=== PATIENT | female | born 1955 | race Asian ===

== ENCOUNTER 2017-11-19 16:07 | Emergency (ER) | payer OTHER ==
[~2017-11-19] VITALS: Ht 147.3 cm; Wt 98.4 kg
[2017-11-19 16:10] VITALS: BP 182/98; TEMP 98.1
== END 2017-11-19 16:33 | disposition home or self-care (01) ==
LOC: ED 16:07
DX: M79.602 Pain in left arm (principal); M79.604 Pain in right leg
CPT/HCPCS: 99281

== ENCOUNTER 2018-04-10 10:11 | Day surgery (SDC) | payer OTHER | END 2018-04-10 14:07 | disposition home or self-care (01) | LOC: OR 10:11 | PROC: 08RJ3JZ Replacement of Right Lens with Synthetic Substitute, Percutaneous Approach (ICD-10-PCS; principal; 2018-04-10) | DX: H25.811 Combined forms of age-related cataract, right eye (principal) | CPT/HCPCS: 66984; J0171; V2632 ==

== ENCOUNTER 2018-04-19 11:03 | Emergency (ER) | payer OTHER ==
[~2018-04-19] VITALS: Ht 147.3 cm; Wt 95.3 kg
[2018-04-19 11:55] VITALS: BP 160/68; TEMP 98.6
== END 2018-04-19 11:55 | disposition home or self-care (01) ==
LOC: ED 11:03
DX: T78.49XA Other allergy, initial encounter (principal)
CPT/HCPCS: 96372; 99282; J2930

== ENCOUNTER 2018-06-05 07:32 | Day surgery (SDC) | payer OTHER | END 2018-06-05 10:30 | disposition home or self-care (01) | LOC: OR 07:32 | PROC: 08RK3JZ Replacement of Left Lens with Synthetic Substitute, Percutaneous Approach (ICD-10-PCS; principal; 2018-06-05) | DX: H25.812 Combined forms of age-related cataract, left eye (principal) | CPT/HCPCS: 66984; V2632 ==

== ENCOUNTER 2018-07-14 12:03 | Outpatient (CLI) | payer OTHER ==
[2018-07-14 12:36] LABS: PLATELET COUNT 222 K/uL (152-353)
[2018-07-14 12:52] LABS: POTASSIUM 3.8 mmol/L (3.6-5.2)
== END 2018-07-14 19:46 | disposition home or self-care (01) ==
LOC: LABW 12:03
PROVIDERS: Dermatology
DX: Z79.899 Other long term (current) drug therapy (principal)
CPT/HCPCS: 36415; 80051; 80053; 82565; 85027

== ENCOUNTER 2018-09-27 14:29 | Emergency (ER) | payer OTHER ==
[~2018-09-27] VITALS: Ht 147.3 cm; Wt 88.5 kg
[2018-09-27 14:35] VITALS: TEMP 98.1
[2018-09-27 15:35] VITALS: BP 130/64
== END 2018-09-27 15:35 | disposition home or self-care (01) ==
LOC: ED 14:29
DX: K64.4 Residual hemorrhoidal skin tags (principal)
CPT/HCPCS: 96372; 99282; J1885

== ENCOUNTER 2019-02-21 14:09 | Outpatient (CLI) | payer OTHER | END 2019-02-21 20:33 | disposition home or self-care (01) | LOC: RAD 14:09 | DX: M79.5 Residual foreign body in soft tissue (principal) ==

== ENCOUNTER 2020-10-13 02:19 | Emergency (ER) | payer OTHER ==
[~2020-10-13] VITALS: Ht 147.3 cm; Wt 81.6 kg
[2020-10-13 03:39] LABS: PLATELET COUNT 251 K/uL (152-353)
[2020-10-13 03:42] LABS: POTASSIUM 3.5 mmol/L (3.6-5.2)
[2020-10-13 04:30] VITALS: BP 173/70; TEMP 98.2
== END 2020-10-13 04:30 | disposition home or self-care (01) ==
LOC: ED 02:19
PROVIDERS: Hospitalist
DX: R10.32 Left lower quadrant pain (principal); E11.65 Type 2 diabetes mellitus with hyperglycemia
CPT/HCPCS: 36415; 80053; 81000; 82150; 83690; 85027; 96360; 96361; 96374; 96375; 99284; J1170; J1815; J1885; J2405

== ENCOUNTER 2020-11-26 04:00 | Emergency (ER) | payer OTHER | END 2020-11-26 05:55 | disposition home or self-care (01) | LOC: ED 04:00 | DX: M19.022 Primary osteoarthritis, left elbow (principal); M85.88 Other specified disorders of bone density and structure, other site; M85.822 Other specified disorders of bone density and structure, left upper arm; M79.2 Neuralgia and neuritis, unspecified | CPT/HCPCS: 96372; 99283 ==

== ENCOUNTER 2021-02-07 15:43 | Emergency (ER) | payer OTHER ==
[~2021-02-07] VITALS: Ht 147.3 cm; Wt 81.6 kg
[2021-02-07 16:52] LABS: PLATELET COUNT 237 K/uL (152-353)
[2021-02-07 16:58] LABS: POTASSIUM 3.3 mmol/L (3.6-5.2)
[2021-02-07 20:15] VITALS: BP 126/66; TEMP 97.4
== END 2021-02-07 20:23 | disposition home or self-care (01) ==
LOC: ED 15:43
PROVIDERS: Family Medicine
DX: U07.1 COVID-19 (principal); J84.9 Interstitial pulmonary disease, unspecified; E87.6 Hypokalemia; Z98.890 Other specified postprocedural states
CPT/HCPCS: 36415; 80053; 82150; 83690; 85027; 87635; 96365; 96375; 99284; J0696; J2405; U0003

== ENCOUNTER 2021-09-09 10:53 | Outpatient (CLI) | payer OTHER | END 2021-09-09 21:35 | disposition home or self-care (01) | LOC: RAD 10:53 | PROVIDERS: ATTEND Internal Medicine | DX: Z13.820 Encounter for screening for osteoporosis (principal); N95.8 Other specified menopausal and perimenopausal disorders ==

== ENCOUNTER 2021-10-19 15:11 | Emergency (ER) | payer OTHER ==
[~2021-10-19] VITALS: Ht 147.3 cm; Wt 81.6 kg
[2021-10-19 15:25] VITALS: TEMP 98
[2021-10-19 16:29] LABS: PLATELET COUNT 267 K/uL (152-353)
[2021-10-19 16:46] LABS: POTASSIUM 3.9 mmol/L (3.6-5.2)
[2021-10-19 19:20] VITALS: BP 130/90
== END 2021-10-19 19:20 | disposition home or self-care (01) ==
LOC: ED 15:11
PROVIDERS: Emergency Medicine Emergency Medical Services
DX: R10.12 Left upper quadrant pain (principal); E11.65 Type 2 diabetes mellitus with hyperglycemia
CPT/HCPCS: 80053; 81000; 85027; 87040; 87205; 96360; 96374; 96375; 99284; J1815; J2270; J2405; Q9963

== ENCOUNTER 2022-12-22 13:08 | Emergency (ER) | payer OTHER ==
[~2022-12-22] VITALS: Ht 147.3 cm; Wt 85.3 kg
[2022-12-22 13:13] VITALS: BP 105/87; TEMP 98.2
== END 2022-12-22 16:49 | disposition home or self-care (01) ==
LOC: ED 13:08
DX: M77.11 Lateral epicondylitis, right elbow (principal)
CPT/HCPCS: 96372; 99283; J1100; J1885